=== PATIENT | male | born 1935 | race Caucasian/White ===

== ENCOUNTER 2017-03-30 20:52 | Inpatient (IN) | payer MEDICARE ==
[~2017-03-30] VITALS: Ht 170.1 cm; Wt 67.2 kg
--- NOTE | ~2017-03-30 | WRIGHTHP ---
[place], [place] PATIENT HISTORY AND PHYSICAL EXAM NAME: [id number] UNIT #: [id number] ROOM: 519 DOCTOR: CRISTY LOGAN MD BIRTHDATE: [birth year] DOS: 03/30/2017 HISTORY OF PRESENT ILLNESS: The patient is 81 years old. On March 18, he got a shot spinal steroid for chronic back pain. The patient states that he continued to have severe back pain. At that time, he also started having virus with runny nose and sinus congestion. Over the last several days, it has continued to progress. He went to the [facility] and was examined there, but did not get an antibiotic. Yesterday, he was quite short of breath and continued to cough and so decided to come into the ER where he was evaluated and was diagnosed with possible sepsis with pneumonia and was admitted. This morning he feels fairly good, does not have any new complaints and then the cough. He looks tired. Denies having any chest pains or palpitations. Does not have any nausea or any emesis. Chronic back pain. PAST MEDICAL HISTORY: Significant for: 1. Chronic back pain from degenerative lumbar spinal stenosis. 2. Benign hypertension. 3. Mixed hyperlipidemia. MEDICATIONS: Amlodipine 5 mg daily, allopurinol 100 mg daily, atorvastatin 40 mg daily, vitamin D 1000 units daily, finasteride 5 mg daily, fosinopril 40 mg daily and Flomax 0.4 mg daily. SOCIAL HISTORY: Nonsmoker. Does not use any alcohol. Lives at home. PHYSICAL EXAMINATION: GENERAL: He is awake, alert and oriented. VITAL SIGNS: Graphic trend shows that he is afebrile, temperature 98.6, pulse of 114, respirations 22 and temperature 130/69. LUNGS: Diminished breath sounds. HEART: Few scattered rhonchi heard bilaterally. HEART: Regular. ABDOMEN: Obese, soft, nontender. EXTREMITIES: Without any edema. LABORATORY DATA: White cell count is 17.5. ASSESSMENT AND PLAN: 1. The patient presents with acute hypoxic respiratory failure. The patient has been placed on oxygen supplementation. Chest x-ray revealing pneumonia. 2. Sepsis with pneumonia, possible gram negative. Intravenous antibiotics have been ordered. Cultures are pending. Sputum cultures ordered. 3. Benign hypertension, controlled. 4. Chronic back pain. Continue home meds. [place], [place] PATIENT HISTORY AND PHYSICAL EXAM NAME: IRVIN PRADO UNIT #: [id number] ROOM: [facility] DOCTOR: CRISTY LOGAN MD BIRTHDATE: [birth year] CRISTY LOGAN MD CM:HISPHYS:PATIENT HISTORY AND PHYSICAL EXAMINATION 3 CRISTY LOGAN MD 03/31/17911 interface
--- NOTE | ~2017-03-30 | PR ---
[place], [place] PROGRESS NOTE NAME: IRVIN PRADO UNIT #: [id number] ROOM: 519 DOCTOR: CRISTY LOGAN MD BIRTHDATE: [birth year] DOS: SUBJECTIVE: The patient states he is pretty weak. He has chronic back pain, which is not getting any better. He did receive a steroid injection, which did not help. He is unable to even straighten up when he walks. OBJECTIVE: VITAL SIGNS: Blood pressure is 102/50, pulse of 80, respirations 20, temperature 97.6. LUNGS: Diminished breath sounds. HEART: Regular. ABDOMEN: Obese, soft, nontender. EXTREMITIES: Without any edema. IMAGING: Chest x-ray shows continued presence of pneumonia with small pleural effusion. LABORATORY DATA: BMP: Glucose 116, BUN 21, creatinine 1.94. WBC count is 12.2, hemoglobin 8.9, hematocrit 27.6, platelets 282. ASSESSMENT AND PLAN: 1. The patient with sepsis from underlying left lower lobe pneumonia with consolidation and pleural effusion. Improvement has been extremely low. He continues to be short of breath. Sputum cultures and blood cultures have come back negative and lactic acid level has normalized. We will do a CT of the chest to see the extent of infection. 2. Acute kidney injury from acute tubular necrosis from hypotension. Since the creatinine has gone up from yesterday, slow IV hydration will be continued. 3. Adult failure to thrive. PT/OT have been consulted and I suggested he go to [facility], which he agreed on. 4. Benign hypertension. Pressures are on the low side. Antihypertensives have been discontinued. 5. Benign prostatic hypertrophy, on medications. 6. Diarrhea, most likely antibiotic induced. Clostridium difficile titer was ordered, which has not been sent yet. [place], [place] PROGRESS NOTE NAME: IRVIN PRADO UNIT #: [id number] ROOM: 519 DOCTOR: CRISTY LOGAN MD BIRTHDATE: [birth year] CRISTY LOGAN MD CM:PNYARELI 2 CRISTY LOGAN MD 04/02/17 0946 interface
--- NOTE | ~2017-03-30 | PR ---
[place], [place] PROGRESS NOTE NAME: IRVIN PRADO UNIT #: [id number] ROOM: 519 DOCTOR: CRISTY LOGAN MD BIRTHDATE: [birth year] DOS: SUBJECTIVE: The patient states that he had 2 large diarrheal bowel movements during the night and 1 early this morning, which was pretty small. He does not have any abdominal pain. No nausea or emesis. His pressures have been running slightly on the low side and he developed a few beats of multifocal atrial tachycardia during the night. He denies having any chest pains, palpitations or shortness of breath. He feels better as far as respiratory status is concerned. He is not coughing as much. OBJECTIVE: VITAL SIGNS: Graphic trend shows blood pressure of 99/41, pulse of 95, respirations 18, temperature 97.9. LUNGS: Diminished breath sounds, clear. HEART: Regular. ABDOMEN: Soft, scaphoid, nontender. EXTREMITIES: Without any edema. ASSESSMENT AND PLAN: 1. Acute respiratory distress syndrome from pneumonia. The patient is on IV antibiotics. Oxygenation has improved. 2. Sepsis with pneumonia, possible gram-negative. IV antibiotics have been ordered. Sputum cultures so far negative. 3. Benign hypertension. Blood pressures are running on the low side, possibly from volume depletion. Antihypertensives on hold. The patient was given IV fluids. 4. Acute tubular necrosis from hypotension, resulting in acute kidney injury. The patient is again on IV fluids, antihypertensives on hold. 5. Multifocal atrial tachycardia. The patient has underlying chronic obstructive pulmonary disease and is not uncommon for these patients to develop them. A consultation with Dr. Gimenez has been obtained and is pending. CRISTY LOGAN MD CM:PNTRANS [phone] CRISTY LOGAN MD 04/02/17 0316 interface
--- NOTE | ~2017-03-30 | PR ---
[place], [place] PROGRESS NOTE NAME: IRVIN PRADO UNIT #: [id number] ROOM: 519 DOCTOR: NOELLE PIZANO MD BIRTHDATE: [birth year] DOS: 04/04/2017 SUBJECTIVE: The patient was seen at his bedside today on 04/04/2017 for followup of tachycardia. He presented on 03/30/2017 with dyspnea and pneumonia. During his hospitalization, he did develop an irregular tachycardia. Review of the rhythm strips shows that he was in multifocal atrial tachycardia and this has resolved spontaneously without any specific cardiac treatment. The patient feels better today and plans are being made for movement to an extended care facility. PHYSICAL EXAMINATION: VITAL SIGNS: Today, his pulse is 110 and regular, blood pressure is 102/64. He is afebrile. He weighs 67.2 kilograms with a body mass index of 23.2. NECK: Supple. He has no jugular distention. Carotids are full. LUNGS: Respirations are unlabored at rest. He does have a few crackles at the bases, especially on the left. He has no presacral edema. HEART: Has a regular rhythm with an S4 gallop. I heard No S3 or significant murmur. ABDOMEN: Benign. EXTREMITIES: Showed no edema. An echocardiogram done on 04/01/2017 showed normal left ventricular size with mild concentric left ventricular hypertrophy. There was normal segmental wall motion and systolic function with stage 1 diastolic relaxation abnormalities. The left atrium was moderately dilated. He appears to be doing well from a cardiac standpoint. At this point, I do not believe that any further testing or change in management is indicated from my point of view. We will remain available to see him intermittently. I thank Dr. Bran for asking our advice regarding his care. NOELLE PIZANO MD CM:PNTRANS [phone] NOELLE PIZANO MD 04/04/17 232 interface
--- NOTE | ~2017-03-30 | DS ---
[place], [place] DISCHARGE SUMMARY NAME: IRVIN PRADO UNIT #: [id number] ROOM: 519 DOCTOR: CRISTY LOGAN MD BIRTHDATE: [birth year] DOS: HOSPITAL COURSE: The patient is an 81 years old. The patient comes in with complaints of low grade fever, shortness of breath, cough. Please refer to H and P with details. The patient was admitted with diagnosis of left lower lobe pneumonia with small effusion, parapneumonic. After admission, the patient was placed on IV antibiotics, breathing treatments, oxygen supplementation, became quite hypotensive, possibly from multiple antihypertensive, antihypertensives were discontinued. Dr. Gimenez was consulted. Echocardiogram was performed, which was normal. He has had some periods of multifocal atrial tachycardia, but the heart rate has always been controlled, no new medicines have been given. Blood cultures have come back negative. Lactic acid has normalized. Repeat chest x-ray shows continued improvement in the pneumonia. He has had some occasional diarrhea, most likely antibiotic induced. Clostridium difficile titers have been negative. Routine labs also showed that he was anemic. Iron levels and B12 levels were ordered. Iron is on the low side. Hemoccults will be ordered and the patient is placed on iron supplements. He has chronic back pain from lumbar disk disease and spinal stenosis. He has received spinal cortisone injection by Dr. Aranda at pain clinic last week, which has not helped so low dose fentanyl was started. He also developed acute kidney injury from low blood pressure and resulting in ATN. Kidney functions have remained fairly stable. He has received IV fluids, which will be discontinued before transfer. Please do a basic metabolic panel and CBC on Friday and contact me with the results. DISCHARGE MEDICATIONS: Ceftin 250 mg twice a day for 7 days, allopurinol 100 mg daily, vitamin D 1000 units daily, finasteride 5 mg daily, tamsulosin 0.4 mg daily, atorvastatin 40 daily, fish oil one tablet daily. His Fosinopril and amlodipine have been discontinued. He was placed on fentanyl 12 mcg q. 72 hours for chronic back pain and low sodium diet. [place], [place] DISCHARGE SUMMARY NAME: IRVIN PRADO UNIT #: [id number] ROOM: 519 DOCTOR: CRISTY LOGAN MD BIRTHDATE: [birth year] CRISTY LOGAN MD CM:KAYLEE [id number] [phone] CRISTY LOGAN MD 04/03/172028 interface
--- NOTE | ~2017-03-30 | PR ---
[place], [place] PROGRESS NOTE NAME: IRVIN PRADO UNIT #: [id number] ROOM: 519 DOCTOR: NOELLE PIZANO MD BIRTHDATE: [birth year] DOS: 04/02/2017 SUBJECTIVE: The patient was seen at his bedside today, 04/02/2017, for followup of his multifocal atrial tachycardia. The patient has remained in sinus rhythm with PACs today. He states that he is breathing slightly better, although he still has dyspnea with minor exertion. PHYSICAL EXAMINATION: VITAL SIGNS: His pulse is 100 and regular, blood pressure is 112/60. He is afebrile. NECK: Supple. He has no jugular distention. Carotids are full. LUNGS: Respirations are unlabored. He does have crackles at the right base. HEART: Has a regular rhythm with an occasional premature beat. He has a fourth heart sound, but no third heart sound. ABDOMEN: Benign. EXTREMITIES: Showed no edema. IMPRESSION: 1. Pneumonia. 2. Multifocal atrial tachycardia. 3. Echocardiogram, 04/01/2017, showed normal left ventricular size and systolic function with mild concentric left ventricular hypertrophy and grade 1 diastolic relaxation abnormalities, moderate left atrial enlargement. No significant abnormality of valve function. PLAN: We will continue to monitor the patient conservatively. No other cardiac workup is planned at this time. As noted previously, if his rhythms become troublesome while we are treating his pneumonia, we could add verapamil or diltiazem to his regimen to control the arrhythmias more effectively. This may, however, result in more hypotension and therefore we will withhold these medications unless they are absolutely necessary. I thank Dr. Bran for asking our advice regarding management of this patient. [place], [place] PROGRESS NOTE NAME: JESSANDREAIRVIN UNIT #: [id number] ROOM: 519 DOCTOR: NOELLE PIZANO MD BIRTHDATE: [birth year] NOELLE PIZANO MD CM:PNTRANS [phone] NOELLE PIZANO MD 04/02/17 1804 interface
--- NOTE | ~2017-03-30 | PR ---
[place], [place] PROGRESS NOTE NAME: IRVIN PRADO UNIT #: [id number] ROOM: 519 DOCTOR: CRISTY LOGAN MD BIRTHDATE: [birth year] DOS: SUBJECTIVE: The patient feels okay, does not have any complaints. Denies any chest pains, palpitations or shortness of breath. OBJECTIVE: VITAL SIGNS: Graphic trend shows blood pressure 110/68, pulse of 90, respirations 20, temperature 98.2. LUNGS: Diminished breath sounds, clear. HEART: Regular. ABDOMEN: Obese, soft, nontender. EXTREMITIES: Without any edema. LABORATORY DATA: Iron is low at 21. Chest x-ray shows improvement of the pneumonia. CT report unavailable. C. diff titer was negative. ASSESSMENT AND PLAN: 1. Pneumonia, possible gram negative, left lower lobe, improvement clinically as well as radiologically, still waiting for the chest x-ray. 2. Anemia, iron deficiency. Hemoccults will be sent. The patient was started on iron supplements. 3. Adult failure to thrive with chronic pain from spinal stenosis. The patient to go to [place] when precertification is obtained. CRISTY LOGAN MD CM:PNTRANS [phone] CRISTY LOGAN MD 04/04/17 0239 interface
[~2017-03-30 20:52] MED LIST: ALLOPURINOL100 MG PO; AVADART PO; CRESTOR10 MG PO; FISH OIL 1,2001 EAC1 PO; FLOMAX0.4 MG PO; FOSINOPRIL40 MG PO; HYDROCHLOROTHIA25 MG PO; VITAMIN D1000 IU PO
[2017-03-30 21:07] VITALS: BP 130/69
[2017-03-30] MEDS ORDERED: FINASTERIDE5 M1 PO (21:12)
[2017-03-30] MEDS ORDERED: FLOMAX0.4 MG PO (21:13)
[2017-03-30 21:49] LABS: HEMATOCRIT 34.6 % (42.0-52.0); HEMOGLOBIN 11.7 g/dl (14.0-18.0); MEAN CELL VOLUME 90.1 fl (80.0-94.0); MEAN CORPUSCULAR HGB 30.5 pg (27.0-31.0); MEAN CORPUSCULAR HGB CONC 33.8 g/dl (33.0-37.0); MEAN PLATELET VOLUME 9.9 fl (9.6-12.3); PLATELET COUNT AUTOMATED 371 10*3/uL (130-400); RED BLOOD COUNT 3.84 10*6/uL (4.50-5.90); RED CELL DISTRI WIDTH 14.4 % (0-14.5); WHITE BLOOD COUNT 17.5 10*3/uL (4.8-10.8)
[2017-03-30 22:09] LABS: ALBUMIN 2.4 gm/dl (3.1-4.5); CREATININE 1.8 mg/dL (0.70-1.30); POTASSIUM 3.9 mmol/L (3.5-5.1); TOTAL PROTEIN 6.9 gm/dL (6.4-8.2)
[2017-03-30 22:10] LABS: PLATELET SUFFICIENCY NORMAL (NORMAL); TOTAL CELLS COUNTED 100 #CELLS
[2017-03-30 23:10] VITALS: BP 101/68
--- NOTE | 2017-03-30 23:10 | NUR ---
PT RATES PAIN IN BACK 7 OUT OF 10 PRIOR TO NARCOTIC ADM
--- NOTE | 2017-03-30 23:56 | NUR ---
attempted to call report
--- NOTE | 2017-03-31 00:08 | NUR ---
report given to matthew herman
[2017-03-31 00:30] VITALS: BP 108/70
--- NOTE | 2017-03-31 00:30 | NUR ---
A 81YR OLD MALE, admitted to 5E, under the services of CRISTY Gomez MD with a diagnosis of SEVERE SEPSIS. Chief complaint is COLD SYMPTOMS X 1 WEEK. Patient arrived via stretcher from ER. Monitor applied. Initial assessment completed. Vital signs taken and recorded. CRISTY GOMEZ MD notified of admission to the unit. Orders received. See assessment for past medical history, medications and allergies. Patient and/or family oriented to unit 5E. visitation policy reviewed. Clothing/patient valuable form completed. ELA LOPEZ
[2017-03-31] MEDS ORDERED: AMLODIPINE BESYL5 MG PO (00:32)
[2017-03-31] MEDS ORDERED: FISH OIL 1,2001 EACH PO (00:36)
[2017-03-31] MEDS ORDERED: ATORVASTATIN CA40 M1 PO (00:37)
--- NOTE | 2017-03-31 00:42 | NUR ---
MED REC UP TO DATE PER LIST PROVIDED BY PATIENT.
--- NOTE | 2017-03-31 01:35 | NUR ---
Called and told Dr. Bran regarding the Zosyn order being changed by [facility] and she said don't worry about giving the Zosyn tonight and just give the Levaquin. She will put in another order for Zosyn in am.
--- NOTE | 2017-03-31 02:50 | NUR ---
24 HR chart check completed.
[2017-03-31 08:00] VITALS: BP 101/50
--- NOTE | 2017-03-31 08:00 | NUR ---
[employer] in to talk to patient. Patient states lives at HOME ALONE with . There are 4 steps in the home. Physician: DR LOGAN Pharmacy: [facility] [place] Home health services: NONE Patient's level of ADLs: INDEPENDENT Patient has working utilities: YES DME: BOYD GARCIA Follow-up physician's appointment after d/c: PREFERS TO MAKE HIS OWN APPT Does patient want to access PORTAL?: Discharge plan HOME. CRESCENCIO BOURNE
--- NOTE | 2017-03-31 08:00 | NUR ---
RESTING QUIETLY WITH HOB ELEVATED WITH O2 ON. NO COMPLAINTS VOICED. BECOMES SOB WITH MINIMAL EXERTION EVEN TALKING. IV FLUIDS INFUSING. DR DESMOND ESCOBEDO AND DISCUSSED PLAN OF CARE. SEE SHIFT ASSESSMENT.
--- NOTE | 2017-03-31 09:41 | NUR ---
SPUTUM COLLECTED AND SENT TO LAB.
[2017-03-31 12:00] VITALS: BP 100/50
--- NOTE | 2017-03-31 12:02 | NUR ---
PT BP RUNNING LOW WITH AUTOMATIC CUFF. RECHECK BP MANNUALLY RESULT 100/50.
[2017-03-31 16:00] VITALS: BP 100/60
[2017-03-31 20:00] VITALS: BP 90/50
[2017-03-31 20:30] VITALS: BP 90/48
--- NOTE | 2017-03-31 21:07 | NUR ---
NOTIFIED OF BP 90/48 AND HR 104 CURRENTLY PER CM. PER CM, PATIENT ALSO HAVING BURSTS OF ATRIAL FIBRILLATION. NOTIFIED. INSTRUCTED TO CONSULT [employer]ING [employer]PERVIS[employer]. IF PATIENT DOES NOT HAVE ONE OF HIS OWN, CONSULT [facility] [employer]. ALSO INSTRUCTED TO KEEP FLUIDS RUNNING AT 60/HR AND TO ORDER AN ECHOCARDIOGRAM FOR TOMORROW.
--- NOTE | 2017-03-31 21:15 | NUR ---
'S ANSWERING SERVICE CALLED AT THIS TIME REGARDING CONSULT. AWAITING RETURN PHONE CALL.
--- NOTE | 2017-03-31 21:24 | NUR ---
SPOKE TO AT THIS TIME REGARDING CONSULT. PER , HOLD NORVASC AND LISINOPRIL AND ORDER A TSH FOR TOMORROW MORNING. STATES HE WILL BE IN TO SEE PATIENT TOMORROW MORNING, BUT IS REQUESTING STRIPS IN QUESTION TO BE FAXED TO HIS HOME FAX MACHINE. STRIPS FAXED REQUESTED.
--- NOTE | 2017-03-31 22:28 | NUR ---
SPOKE TO AT THIS TIME. PER , PATIENT IS HAVING PERIODS OF MULTIFOCAL ATRIAL TACHYCARDIA. STATES THAT THIS WILL IMPROVE HIS BREATHING PROBLEMS IMPROVE. NO NEW ORDERS RECEIVED AT THIS TIME. STATES SOMEONE WILL SEE HIM TOMORROW.
[2017-04-01] VITALS: BP 105/47
[2017-04-01 06:55] LABS: BASO % 0.2 % (0.0-1.0); EOS # 0.3 10*3/uL (0.0-0.4); EOS % 2.5 % (1.0-4.0); LYMPH % 9.2 % (27.0-41.0); MEAN CORPUSCULAR HGB 30.6 pg (27.0-31.0); MEAN CORPUSCULAR HGB CONC 32.6 g/dl (33.0-37.0); MONO # 1.1 10*3/uL (0.1-1.0); MONO % 10.2 % (3.0-9.0); NEUT # 8.1 10*3/uL (2.3-7.9); NEUT % 76.8 % (47.0-73.0); PLATELET COUNT AUTOMATED 262 10*3/uL (130-400); RED BLOOD COUNT 2.94 10*6/uL (4.50-5.90); RED CELL DISTRI WIDTH 14.8 % (0-14.5); WHITE BLOOD COUNT 10.5 10*3/uL (4.8-10.8)
[2017-04-01 06:56] LABS: HEMATOCRIT 27.6 % (42.0-52.0); MEAN CELL VOLUME 93.9 fl (80.0-94.0)
[2017-04-01 07:28] LABS: CREATININE 1.88 mg/dL (0.70-1.30)
[2017-04-01 07:43] LABS: THYROID STIM HORMONE (HS) 0.212 uIU/ml (0.358-4.75)
[2017-04-01 08:00] VITALS: BP 99/41
--- NOTE | 2017-04-01 08:00 | NUR ---
IN BED AWAKE ALERT AND ORIENTED X3, NO S/S OF DISTRESS. SEE ASSESS. CALL LIGHT IN REACH.
--- NOTE | 2017-04-01 10:30 | NUR ---
ECHO BEING DONE AT THIS TIME.
[2017-04-01 12:00] VITALS: BP 96/67
[2017-04-01 13:00] VITALS: BP 96/67
[2017-04-01 16:00] VITALS: BP 112/64
[2017-04-01 20:00] VITALS: BP 89/56
--- NOTE | 2017-04-01 23:55 | NUR ---
SPOKE TO ABOUT PATIENT'S MANUAL BP OF 86/48. AWARE THAT PHARMACY DISCONTINUED IV FLUIDS 04/01/17 AT 0000. INSTRUCTED TO ORDER 500 CC BOLUS OF NORMAL SALINE X1 BAG. NO MAINTENANCE FLUIDS TO FOLLOW PER .
[2017-04-02] VITALS (7 sets, daily range): BP systolic 86–112; BP diastolic 48–60
--- NOTE | 2017-04-02 00:09 | NUR ---
500 CC BOLUS INITIATED PER ORDER
--- NOTE | 2017-04-02 04:12 | NUR ---
PATIENT ASLEEP IN BED AT THIS TIME. RESPIRATIONS EASY. NO S/S OF DISTRESS NOTED. WILL MONITOR. CALL LIGHT LEFT IN REACH.
[2017-04-02 07:29] LABS: BASO % 0.2 % (0.0-1.0); EOS # 0.2 10*3/uL (0.0-0.4); EOS % 1.9 % (1.0-4.0); HEMATOCRIT 27.6 % (42.0-52.0); HEMOGLOBIN 8.9 g/dl (14.0-18.0); LYMPH # 0.9 10*3/uL (1.3-4.4); LYMPH % 7.5 % (27.0-41.0); MEAN CELL VOLUME 92.3 fl (80.0-94.0); MEAN CORPUSCULAR HGB 29.8 pg (27.0-31.0); MEAN CORPUSCULAR HGB CONC 32.2 g/dl (33.0-37.0); MEAN PLATELET VOLUME 10.3 fl (9.6-12.3); MONO # 1.2 10*3/uL (0.1-1.0); MONO % 9.6 % (3.0-9.0); NEUT # 9.7 10*3/uL (2.3-7.9); NEUT % 79.5 % (47.0-73.0); PLATELET COUNT AUTOMATED 282 10*3/uL (130-400); RED BLOOD COUNT 2.99 10*6/uL (4.50-5.90); WHITE BLOOD COUNT 12.2 10*3/uL (4.8-10.8)
[2017-04-02 07:45] LABS: CREATININE 1.94 mg/dL (0.70-1.30); POTASSIUM 3.9 mmol/L (3.5-5.1)
--- NOTE | 2017-04-02 10:48 | NUR ---
SW spoke with Pt regarding discharge to senior living facility per Dr. Bran's recommendation. Pt choose for referral to be made to [facility].
--- NOTE | 2017-04-02 11:36 | NUR ---
PHYSICAL THERAPY PAtient evaluated on 5, full evaluation to follow. Continue with PT as per plan of care with fall, chronic low back pain and acute debility. PAtient home alone with signfiicant impaired mobility- may require SMF in order to return to home, safely, at [facility]. PAtient is moderate complexity via chart review, tests and evaluation: 12541. Thank you for this referral. Lindy Michelle,PT
--- NOTE | 2017-04-02 12:25 | NUR ---
Occupational Therapy evaluation completed on 5 with full eval to follow. PRecautions include fall risk, severe back pain, moderate complexity level 9716. Recommend OT per POC and SNF upon d/c to enable safe return home alone at independent level. Thank you for this referral. Teressa Fragoso OTR/L
--- NOTE | 2017-04-02 12:37 | NUR ---
Faxed referral to [facility].
--- NOTE | 2017-04-02 21:00 | NUR ---
PATIENT UP IN BATHROOM, SITTING IN CHAIR BATHING. HR 130, DYSPNEIC. ASSISTED TO FINISH BATHING, PATIENT RETURNED TO BED. BREATHING EASIER. LUNGS DIMINISHED. PULSE OX 95% RA. CLAIMS COUGH PRODUCTIVE FOR WHITE. IV FLUIDS INFUSING PER ORDER. CALL LIGHT WITHIN REACH. NO VOICED COMPLAINTS
[2017-04-03] VITALS: BP 87/56; BP 92/60
--- NOTE | 2017-04-03 | NUR ---
SLEEPING. RESPIRATIONS EASY. VSS. IV FLUIDS MAINTAINED PER ORDER. CALL LIGHT WITHIN REACH
--- NOTE | 2017-04-03 02:40 | NUR ---
CONTINUES TO SLEEP
--- NOTE | 2017-04-03 06:00 | NUR ---
SLEPT THROUGHOUT NIGHT WITH NO DISTRESS NOTED. RESPIRATIONS EASY. IV FLUIDS MAINTAINED. CALL LIGHT WITHIN REACH. NO VOICED COMPLAINTS THIS SHIFT
[2017-04-03 08:00] VITALS: BP 110/68
--- NOTE | 2017-04-03 08:00 | NUR ---
PT STATES HE FEELS LIGHTHEADED AND WEAK. MANUAL BP 110/60, PT INSTRUCTED NOT TO GET OUT OF BED WITHOUT CALLING FOR HELP. WILL CONTINUE TO MONITOR.
--- NOTE | 2017-04-03 08:15 | NUR ---
DR LOGAN IN TO SEE PT AND DISCUSS PT PLAN OF CARE WITH HIM.
--- NOTE | 2017-04-03 08:30 | NUR ---
PT STATES HE FEELS MUCH BETTER AFTER EATING BREAKFAST. NO DISTRESS NOTED.
--- NOTE | 2017-04-03 09:07 | NUR ---
PHYSICAL THERAPY Patient seen this am 1:1 for therapy, supine in bed, reporting mild 2/10 LBP after receiving pain med within the past hour. Patient transfers sup to sit EOB, Min A and sit to stand CGA x 1, then ambulated 40'x 1 with use of std walker, demonstating uneven stride and decreased upright posture prior to returning to EOB sit with mild fatigue. After a brief seated rest, patient performed seated B LE therex, all planes, x 10 reps each to increase LE strength. Patient also required v/c's for upright posture during gait and improved ex technique. Patient returned to supine in bed and remained with call light, telephone and tray table as breakfast tray arrived. Will contnue per POC as tolerated to return to PLOF with decreased c/o pain. Marcell Phillips, [employer]ER [employer]ER
--- NOTE | 2017-04-03 10:00 | NUR ---
PT STATES HE IS FEELING MUCH BETTER WITH NO FURHTER C/O.
[2017-04-03 12:00] VITALS: BP 108/58
--- NOTE | 2017-04-03 13:02 | NUR ---
Martina from [facility] called and stated the windows vmware administrator is still reviewing this patient, still waiting on acceptance.
[2017-04-03 16:00] VITALS: BP 105/63
--- NOTE | 2017-04-03 16:00 | NUR ---
RESTING QUIETLY NO C/O NO DISTRESS NOTED.
[2017-04-03 20:00] VITALS: BP 109/65
--- NOTE | 2017-04-03 21:00 | NUR ---
RESTING IN BED WITH NO ACUTE DISTRESS NOTED. RESPIRATIONS EASY. LUNGS DIMINISHED. PULSE OX 95% RA. CLAIMS COUGH MINIMALLY PRODUCTIVE FOR WHITE. CALL LIGHT WITHIN REACH. NO VOICED COMPLAINTS
[2017-04-04] VITALS: BP 112/80
--- NOTE | 2017-04-04 | NUR ---
SLEEPING. NO DISTRESS NOTED. RESPIRATIONS EASY. VSS. CALL LIGHT WITHIN REACH.
--- NOTE | 2017-04-04 02:00 | NUR ---
CONTINUES TO SLEEP WITH NO DISTRESS NOTED.
--- NOTE | 2017-04-04 06:00 | NUR ---
SLEPT THROUGHOUT NIGHT WIH NO DISTRESS NOTED. RESPIRATIONS EASY. VSS. CALL LIGHT WITHIN REACH. NO VOICED COMPLAINTS THIS SHIFT
[2017-04-04 08:00] VITALS: BP 102/64
--- NOTE | 2017-04-04 08:00 | NUR ---
RESTING QUIETLY IN BED, NO C/O NO DISTRESS NOTED. PT STATES HE SLEPT GOOD LAST EVENING. SEE SHIFT ASSESSMENT.
--- NOTE | 2017-04-04 09:10 | NUR ---
Patient has been accepted to [facility], hospital exemption completed online in [employer] system. Precert started 04/03/17, waiting on auth.
--- NOTE | 2017-04-04 09:53 | NUR ---
PHYSICAL THERAPY Pt was seen this AM 1:1 for his physical therapy session, Pt supine in bed. Transfer supine/sit, sitting balance CG X 1. Sit/stand, standing balance with standard walker CG AX 1, and having C/O his back pain and his nurse in with his meds. Gait with standard walker 32' X 2, with stop/start gait, and turns little cueing and did well, Pt back supine in bed to rest, no LOB with this. 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
--- NOTE | 2017-04-04 11:53 | NUR ---
PATIENT IN BED UPON ARRIVAL THIS DATE. PATIENT DECLINED OT THIS DATE STATING THAT HIS BACK PAIN IS FEELING BETTER AND DOES NOT WANT TO STAND BECAUSE HIS BACK WILL START HURTING AGAIN. PATIENT REPORTS THAT HE CAN GET HIM SELF DRESSED AND DOES NOT NEED HELP. KHRIS OCONNOR/Moshe
[2017-04-04 12:00] VITALS: BP 110/64
--- NOTE | 2017-04-04 14:36 | NUR ---
Received authorization for patient to go to [facility], notified nursing
--- NOTE | 2017-04-04 14:59 | NUR ---
Patient being discharged to [facility], transportation scheduled for 4PM, nh and nursing notified.
--- NOTE | 2017-04-04 15:42 | NUR ---
REPORT CALLED TO [facility].
--- NOTE | 2017-04-04 16:00 | NUR ---
DISCHARGED TO [facility] VIA AMBLUANCE. REFUSED FLU VACCINE.
--- NOTE | 2017-04-07 07:18 | NUR ---
PHYSICAL THERAPY CO-SIGN I approve of the Phyical Therapy notes written above. JASMIN SOTOMAYOR PT
--- NOTE | 2017-04-07 08:13 | NUR ---
OCCUPATIONAL THERAPY CO-SIGN I approve of the Occupational Therapy notes written above. IRENE GOMEZ OTR/Moshe
== END 2017-04-04 16:00 | disposition other institution (70) | DRG 871 ==
LOC: ED 20:52 → EDHOLD 23:16 → 5E 23:16
PROVIDERS: Physician Assistant; ADMIT Internal Medicine
DX: A41.9 Sepsis, unspecified organism (principal); J96.01 Acute respiratory failure with hypoxia; N17.0 Acute kidney failure with tubular necrosis; J90 Pleural effusion, not elsewhere classified; I95.9 Hypotension, unspecified; J15.6 Pneumonia due to other Gram-negative bacteria; J18.1 Lobar pneumonia, unspecified organism; I49.8 Other specified cardiac arrhythmias; E86.0 Dehydration; G89.29 Other chronic pain; R19.7 Diarrhea, unspecified; M48.061 Spinal stenosis, lumbar region without neurogenic claudication; I10 Essential (primary) hypertension; D50.9 Iron deficiency anemia, unspecified; R62.7 Adult failure to thrive; N40.0 Benign prostatic hyperplasia without lower urinary tract symptoms; T36.95XA Adverse effect of unspecified systemic antibiotic, initial encounter; R65.20 Severe sepsis without septic shock; E78.5 Hyperlipidemia, unspecified; Z87.891 Personal history of nicotine dependence; Z82.49 Family history of ischemic heart disease and other diseases of the circulatory system; Z80.9 Family history of malignant neoplasm, unspecified; Z79.899 Other long term (current) drug therapy; Y92.89 Other specified places as the place of occurrence of the external cause

== ENCOUNTER → 2017-04-06 | Emergency (ER) | payer MEDICARE ==
[~2017-04-06] VITALS: Ht 170.1 cm; Wt 70.3 kg
[~2017-04-06] MED LIST changes: +AMLODIPINE BESYL5 MG PO; +ATORVASTATIN CA40 M1 PO; +FINASTERIDE5 M1 PO; +FISH OIL 1,2001 EACH PO
[2017-04-06 18:28] VITALS: BP 134/66
== END ==
LOC: ED 18:16
DX: Z00.00 Encounter for general adult medical examination without abnormal findings (principal); Z87.891 Personal history of nicotine dependence

== ENCOUNTER → 2019-01-21 | Outpatient (CLI) | payer MEDICARE ==
[~2019-01-21] MED LIST changes: +ASPIRIN LITE C325 MG PO; +CEFUROXIME AXE250 MG PO; +DOXYCYCLINE100 M3 PO; +NORVASC5 MG PO
== END | disposition home or self-care (01) ==
LOC: CT 09:32
DX: R91.8 Other nonspecific abnormal finding of lung field (principal)

== ENCOUNTER → 2019-01-27 | Outpatient (CLI) | payer MEDICARE | END | disposition home or self-care (01) | LOC: CARD 01:27 | DX: I07.1 Rheumatic tricuspid insufficiency (principal); I25.5 Ischemic cardiomyopathy; I27.20 Pulmonary hypertension, unspecified ==

== ENCOUNTER → 2019-10-29 | Outpatient (CLI) | payer MEDICARE | END | disposition home or self-care (01) | LOC: CT 10:40 | DX: G96.0 Cerebrospinal fluid leak (principal) ==

== ENCOUNTER → 2020-01-27 | Outpatient (CLI) | payer MEDICARE | END | disposition home or self-care (01) | LOC: CT 09:29 | PROVIDERS: ATTEND Internal Medicine Critical Care Medicine | DX: J98.4 Other disorders of lung (principal); R91.1 Solitary pulmonary nodule ==

== ENCOUNTER → 2020-07-03 | Outpatient (CLI) | payer MEDICARE | END | disposition home or self-care (01) | LOC: US 07:21 | PROVIDERS: ATTEND Internal Medicine Nephrology | DX: N18.4 Chronic kidney disease, stage 4 (severe) (principal) ==

== ENCOUNTER → 2020-09-15 | Outpatient (CLI) | payer MEDICARE | END | disposition home or self-care (01) | LOC: US 12:40 → CT 14:00 | PROVIDERS: ATTEND Internal Medicine | DX: R91.8 Other nonspecific abnormal finding of lung field (principal); J98.4 Other disorders of lung; I73.9 Peripheral vascular disease, unspecified; R05 Cough ==

== ENCOUNTER 2022-01-25 19:07 | Emergency (ER) | payer MEDICARE ==
[~2022-01-25] VITALS: Ht 170.1 cm; Wt 70.3 kg
[2022-01-25 19:10] VITALS: BP 184/60
[2022-01-25] MEDS ORDERED: METOPROLOL SUC100 M1 PO (19:16)
[2022-01-25] MEDS ORDERED: MONTELUKAST SOD10 MG PO (19:16)
[2022-01-25] MEDS ORDERED: XARE15TA PO (19:17)
[2022-01-25] MEDS ORDERED: Ipratropium Brom3 ML INH (19:18)
[2022-01-25 20:17] LABS: BASO % 0.3 % (0.0-1.0); EOS % 0.3 % (1.0-4.0); HEMATOCRIT 42.9 % (42.0-52.0); LYMPH # 1.2 10*3/uL (1.3-4.4); LYMPH % 10.6 % (27.0-41.0); MEAN CELL VOLUME 94.9 fl (80.0-94.0); MEAN CORPUSCULAR HGB 31.2 pg (27.0-31.0); MEAN CORPUSCULAR HGB CONC 32.9 g/dl (33.0-37.0); MONO # 0.8 10*3/uL (0.1-1.0); MONO % 6.7 % (3.0-9.0); NEUT # 9.2 10*3/uL (2.3-7.9); NEUT % 81.4 % (47.0-73.0); PLATELET COUNT AUTOMATED 184 10*3/uL (130-400); RED BLOOD COUNT 4.52 10*6/uL (4.50-5.90); RED CELL DISTRI WIDTH 14.5 % (0-14.5); WHITE BLOOD COUNT 11.3 10*3/uL (4.8-10.8)
[2022-01-25 20:34] LABS: CREATININE 2.38 mg/dL (0.70-1.30); POTASSIUM 4.3 mmol/L (3.5-5.1)
[2022-01-25 20:36] LABS: TOTAL PROTEIN 6.2 gm/dL (6.4-8.2)
== END 2022-01-25 21:24 | disposition home or self-care (01) ==
LOC: ED 19:07
PROVIDERS: Physician Assistant
DX: R04.2 Hemoptysis (principal); Z79.899 Other long term (current) drug therapy; Z87.891 Personal history of nicotine dependence

== ENCOUNTER → 2022-02-22 | Outpatient (CLI) | payer MEDICARE ==
[~2022-02-22] MED LIST changes: +Ipratropium Brom3 ML INH; +METOPROLOL SUC100 M1 PO; +MONTELUKAST SOD10 MG PO; +XARE15TA PO
== END | disposition home or self-care (01) ==
LOC: CT 10:00
PROVIDERS: ATTEND Internal Medicine
DX: J98.11 Atelectasis (principal); J44.9 Chronic obstructive pulmonary disease, unspecified; R91.8 Other nonspecific abnormal finding of lung field; I51.7 Cardiomegaly; I25.10 Atherosclerotic heart disease of native coronary artery without angina pectoris; N26.1 Atrophy of kidney (terminal)

== ENCOUNTER → 2023-04-10 | Outpatient (CLI) | payer MEDICARE ==
[~2023-04-10] MED LIST changes: +METOPROLOL25 MG PO; +METRONIDAZOLE500 M1 PO; +PREDNISONE5 MG PO
[2023-04-10 13:49] LABS: BASO % 0.4 % (0.0-1.0); EOS # 0.2 10*3/uL (0.0-0.4); EOS % 2.1 % (1.0-4.0); HEMATOCRIT 44.3 % (42.0-52.0); LYMPH # 0.9 10*3/uL (1.3-4.4); LYMPH % 8.8 % (27.0-41.0); MEAN CORPUSCULAR HGB 31.2 pg (27.0-31.0); MEAN CORPUSCULAR HGB CONC 31.8 g/dl (33.0-37.0); MEAN PLATELET VOLUME 10.7 fl (9.6-12.3); MONO # 0.9 10*3/uL (0.1-1.0); MONO % 8.6 % (3.0-9.0); NEUT # 8.3 10*3/uL (2.3-7.9); NEUT % 79.6 % (47.0-73.0); PLATELET COUNT AUTOMATED 191 10*3/uL (130-400); RED BLOOD COUNT 4.52 10*6/uL (4.50-5.90); RED CELL DISTRI WIDTH 14.1 % (0-14.5); WHITE BLOOD COUNT 10.4 10*3/uL (4.8-10.8)
[2023-04-10 14:16] LABS: POTASSIUM 4.8 mmol/L (3.4-5.1); TOTAL PROTEIN 6.2 gm/dL (6.0-8.0)
== END | disposition home or self-care (01) ==
LOC: US 00:59
PROVIDERS: ATTEND Internal Medicine Nephrology
DX: N17.9 Acute kidney failure, unspecified (principal); N18.4 Chronic kidney disease, stage 4 (severe); E83.9 Disorder of mineral metabolism, unspecified

== ENCOUNTER 2023-10-02 19:55 | Emergency (ER) | payer MEDICARE ==
[~2023-10-02] VITALS: Ht 167.6 cm; Wt 69.4 kg
[2023-10-02 20:06] VITALS: BP 144/77
[2023-10-02] MEDS ORDERED: Gelatin Sponge 1 EACH SPON T ONE (20:15)
== END 2023-10-02 20:39 | disposition home or self-care (01) ==
LOC: ED 19:55
DX: Q27.39 Arteriovenous malformation, other site (principal); I10 Essential (primary) hypertension; E78.00 Pure hypercholesterolemia, unspecified; Z90.89 Acquired absence of other organs; Z98.890 Other specified postprocedural states; Z87.891 Personal history of nicotine dependence

== ENCOUNTER → 2024-12-15 | Outpatient (CLI) | payer MEDICARE | END | disposition home or self-care (01) | LOC: CARD 08:30 | PROVIDERS: ATTEND Internal Medicine | DX: I08.8 Other rheumatic multiple valve diseases (principal); I25.10 Atherosclerotic heart disease of native coronary artery without angina pectoris ==

== ENCOUNTER → 2025-03-22 | Outpatient (CLI) | payer OTHER | END | disposition home or self-care (01) | LOC: LAB 10:40 | PROVIDERS: ATTEND Pharmacist | DX: I48.20 Chronic atrial fibrillation, unspecified (principal) ==

== ENCOUNTER → 2025-03-28 | Outpatient (CLI) | payer MEDICARE | END | disposition home or self-care (01) | LOC: MRI 08:38 | PROVIDERS: ATTEND Internal Medicine | DX: M51.372 Other intervertebral disc degeneration, lumbosacral region with discogenic back pain and lower extremity pain (principal); M47.817 Spondylosis without myelopathy or radiculopathy, lumbosacral region; M48.07 Spinal stenosis, lumbosacral region; M41.86 Other forms of scoliosis, lumbar region; M43.15 Spondylolisthesis, thoracolumbar region; M51.34 Other intervertebral disc degeneration, thoracic region; M48.04 Spinal stenosis, thoracic region; M25.78 Osteophyte, vertebrae; M19.90 Unspecified osteoarthritis, unspecified site; I25.10 Atherosclerotic heart disease of native coronary artery without angina pectoris ==